=== PATIENT | female | born 2005 | race Hispanic/Latino ===

== ENCOUNTER 2024-12-06 11:26 | Inpatient (IN) | payer OTHER ==
[2024-12-06] MEDS ORDERED: Methylergonovine 0.2 MG/ML VIAL IM PRN (12:40)
[2024-12-06] MEDS ORDERED: Carboprost 250 MCG/ML AMP IM PRN (12:40)
[2024-12-06] MEDS ORDERED: fentaNYL 50 mcg/mL 1 mL Vial SLOW IVP PRN (12:40)
[2024-12-06] MEDS ORDERED: Promethazine HCl 25 MG/ML VIAL IM PRN (12:40)
[2024-12-06] MEDS ORDERED: Ondansetron PF 4 MG/2 ML Vial IVP PRN (12:40)
[2024-12-06] MEDS ORDERED: Lidocaine 1% (PF) 30 ML VIAL SC PRN (12:40)
[2024-12-06] MEDS ORDERED: Ibuprofen 800 MG TAB PO PRN (12:40)
[2024-12-06] MEDS ORDERED: hydrALAZINE 20 MG/ML VIAL SLOW IVP PRN (12:40)
[2024-12-06] MEDS ORDERED: Diphenoxylate HCl/Atropine Tablet PO PRN ×2 (12:40)
[2024-12-06] MEDS ORDERED: Misoprostol 200 MCG TAB PR PRN (12:40)
[2024-12-06] MEDS ORDERED: Oxytocin 30 units/NS 500 ML 500 ML IV SCH (12:45)
[2024-12-06 12:49] VITALS: BMI 39.0
[2024-12-06 13:19] LABS: Hematocrit 39.6 % (34.9-44.5); Hemoglobin 13.7 g/dL (12.0-15.5); Mean Corpuscular HGB CONC 34.6 g/dL (32.0-36.0); Mean Corpuscular Volume 86.7 fL (81.6-98.3); Mean Platelet Volume 11.9 fL (7.4-10.4); Platelet Count 276 10x3/uL (150-450); Red Blood Cell (RBC) Count 4.57 10x6/uL (3.90-5.03); White Blood Cell (WBC) Count 8.82 10x3/uL (3.5-10.5)
[2024-12-06] MEDS: Misoprostol 100 MCG TAB PO SCH (13:22)
[2024-12-06] MEDS: Lactated Ringer's 1,000 ML IV SCH (13:22)
[2024-12-06 13:29] LABS: ALT (SGPT) 16 U/L (Less than 34); AST (SGOT) 25 U/L (11-34); Albumin 2.9 g/dL (3.1-4.5); Alkaline Phosphatase 209 U/L (40-100); Anion Gap 14 mmol/L (10-20); BUN (Urea Nitrogen) 9 mg/dL (7.0-18.7); Bilirubin, Total 0.2 mg/dL (0.3-1.2); Calc. Creatinine Clearance 227 mL/min (70-130); Carbon Dioxide 17 mmol/L (22-29); Chloride 109 mmol/L (98-107); Estimated GFR 136; Glucose 87 mg/dL (70-105); Potassium 4.1 mmol/L (3.5-5.1); Protein, Total 6.9 g/dL (6.0-8.3); Sodium 136 mmol/L (136-145)
[2024-12-06 13:50] LABS: Syphilis Antibody Nonreactive (Nonreactive); Syphilis Antibody Index 0.08 S/CO (<1.00 Non-Reactive)
[2024-12-06 14:05] LABS: HBsAg Index 0.18 S/CO (0-0.99); HIV (1/2) Antibody/Antigen Non-Reactive (NonReactive); HIV 1/2 INDEX 0.05 S/CO (<1.00); Hep B Surf Ag - L&D Non-Reactive S/CO (NonReactive)
[2024-12-06] MEDS: Misoprostol 100 MCG TAB VAG SCH (19:42)
[2024-12-06] MEDS: Labetalol HCl 200 MG TAB PO SCH (19:59)
[2024-12-06 22:26] LABS: Uric Acid 5.9 mg/dL (2.5-6.2)
[2024-12-07] MEDS ORDERED: Oxytocin 30 units/NS 500 ML 500 ML IV SCH (04:15)
[2024-12-07] MEDS ORDERED: Lidocaine 1% (PF) 30 ML VIAL SC PRN (04:45)
[2024-12-07] MEDS ORDERED: Moisturizing Cream (Eucerin) 113 GM JAR TOP PRN ×2 (10:32→17:16)
[2024-12-07] MEDS ORDERED: Lactated Ringer's 500 ML IV PRN (10:32)
[2024-12-07] MEDS ORDERED: ePHEDrine Sulfate 50 MG/10 ML VIAL SLOW IVP PRN (10:32)
[2024-12-07] MEDS ORDERED: Naloxone HCl 0.4 mg/ml Vial IVP PRN ×4 (10:32→17:16)
[2024-12-07] MEDS ORDERED: diphenhydrAMINE 50 MG/ML VIAL IVP PRN ×2 (10:32→17:16)
[2024-12-07] MEDS ORDERED: Communication Order-Pharmacy FS SCH ×2 (10:45→17:30)
[2024-12-07] MEDS: fentaNYL 2 mcg/Ropivacaine 0.2% Epidural 100 ML CADD EPIDURAL SCH (11:10)
[2024-12-07] MEDS ORDERED: HYDROmorphone 0.5 MG/0.5 ML SYRINGE SLOW IVP PRN (17:16)
[2024-12-07] MEDS ORDERED: Ondansetron PF 4 MG/2 ML Vial IVP PRN ×2 (17:16)
[2024-12-07] MEDS ORDERED: Promethazine HCl 25 MG/ML VIAL IM PRN (17:16)
[2024-12-07] MEDS ORDERED: Naloxone HCl 0.4 mg/ml Vial IV PRN (17:16)
[2024-12-07] MEDS ORDERED: Meperidine HCl/PF 25 MG (1 mL) VIAL SLOW IVP PRN (17:16)
[2024-12-07] MEDS ORDERED: fentaNYL 50 mcg/mL 1 mL Vial SLOW IVP PRN (17:16)
[2024-12-07] MEDS ORDERED: hydrALAZINE 20 MG/ML VIAL SLOW IVP PRN (18:03)
[2024-12-07] MEDS ORDERED: Simethicone Chewable 80 MG TAB PO PRN (18:03)
[2024-12-07] MEDS: Ondansetron PF 4 MG/2 ML Vial IVP PRN (21:11)
[2024-12-07] MEDS: fentaNYL/Ropivacaine Epidural 100 ML ONE (22:13)
[2024-12-07] MEDS: Lidocaine 2% MPF 10 ML AMP (For Epidural Use) ONE (22:14)
[2024-12-07] MEDS: CEFAZOLIN 2 GM VIAL ONE (22:14)
[2024-12-07] MEDS: Sodium Chloride 0.9% 100 ML ONE (22:14)
[2024-12-07] MEDS: Azithromycin 500 MG VIAL ONE (22:14)
[2024-12-07] MEDS: Dexamethasone 10 MG/ML VIAL ONE (22:15)
[2024-12-07] MEDS: Ketorolac Tromethamine 30 MG (1 mL) VIAL ONE (22:15)
[2024-12-07] MEDS: Dexmedetomidine 200 MCG/2 ML VIAL ONE (22:16)
[2024-12-07] MEDS: Morphine PF 10 MG/10 ML VIAL ONE (22:16)
[2024-12-07] MEDS: Ondansetron PF 4 MG/2 ML Vial ONE (22:16)
[2024-12-07] MEDS: Oxytocin 10 UNITS/ML VIAL ONE ×2 (22:16)
[2024-12-07] MEDS: Phytonadione Neonatal 1 MG/0.5 ML AMP ONE (22:17)
[2024-12-07] MEDS: Erythromycin Base 0.5% Oint 1 GM TUBE ONE (22:17)
[2024-12-08 04:25] LABS: Hematocrit 32.3 % (34.9-44.5)
[2024-12-08] MEDS: Ketorolac Tromethamine 30 MG (1 mL) VIAL IVP PRN (12:48)
[2024-12-08] MEDS: Docusate 100 MG CAP PO PRN (20:48)
[2024-12-08] MEDS: Ibuprofen 800 MG TAB PO SCH (21:55)
[2024-12-09] MEDS: Acetaminophen 500 MG TAB PO PRN (04:27)
[2024-12-09] MEDS: Hepatitis B Vaccine 10 MCG/0.5 ML SYR ONE (07:54)
[2024-12-09] MEDS: Boostrix 0.5 ML (Tdap) VIAL (>/=7 yrs of age) IM ONE (07:54)
[2024-12-09 07:56] VITALS: TEMP 97.9
[2024-12-09] MEDS: HYDROcodone/Acetaminophen 5/325 mg Tablet PO PRN (08:32)
[2024-12-09 11:26] VITALS: BP 110/64
[2024-12-10] MEDS ORDERED: Prenatal Vitamin 1 TAB PO SCH (09:00)
== END 2024-12-09 16:39 | disposition home or self-care (01) | DRG 788 ==
LOC: CSHLD/OP 11:26 → CSHLD 11:30 → CSHLD/OP 12:40 → CSHLD 12:40 → CSHPP 12-07 20:20
PROVIDERS: ADMIT Obstetrics & Gynecology; ATTEND Obstetrics & Gynecology
PROC: 10D00Z1 Extraction of Products of Conception, Low, Open Approach (ICD-10-PCS; principal; 2024-12-07)
PROC: 10907ZC Drainage of Amniotic Fluid, Therapeutic from Products of Conception, Via Natural or Artificial Opening (ICD-10-PCS; 2024-12-07)
PROC: 3E0S3BZ Introduction of Anesthetic Agent into Epidural Space, Percutaneous Approach (ICD-10-PCS; 2024-12-07)
DX: O36.5930 Maternal care for other known or suspected poor fetal growth, third trimester, not applicable or unspecified (principal); O13.4 Gestational [pregnancy-induced] hypertension without significant proteinuria, complicating childbirth; Z3A.37 37 weeks gestation of pregnancy; Z37.0 Single live birth; O76 Abnormality in fetal heart rate and rhythm complicating labor and delivery; O62.1 Secondary uterine inertia
CPT/HCPCS: 36415; 51702; 80053; 82239; 82570; 83615; 84155; 84156; 84550; 85014; 85018; 85027; 86780; 86850; 86900; 86901; 87340; 87389; 99285; J1100; J1885; J2274; J2405; J2590; J7120